=== PATIENT | male | born 1955 | race African-American/Black ===

== ENCOUNTER → 2018-01-27 | Outpatient (CLI) | payer OTHER ==
[2018-01-27 12:28] LABS: BASOPHILS # (AUTO) 0.04 x10^3/uL (0-0.1); BASOPHILS % (AUTO) 0 % (0-1); EOSINOPHILS # (AUTO) 0.28 x10^3/uL (0-0.4); EOSINOPHILS % (AUTO) 3 % (1-7); LYMPHOCYTES # (AUTO) 1.87 x10^3/uL (1-3.4); LYMPHOCYTES % (AUTO) 23 % (22-44); MD NO; MEAN CORPUSCULAR HEMOGLOBIN 29.5 pg (27.5-34.5); MEAN CORPUSCULAR HGB CONC 33.4 g/dL (33.2-36.2); MEAN CORPUSCULAR VOLUME 88.3 fL (81-97); MONOCYTES # (AUTO) 0.87 x10^3/uL (0.2-0.8); MONOCYTES % (AUTO) 11 % (2-9); NEUTROPHILS # (AUTO) 5.22 x10^3/uL (1.8-6.8); NEUTROPHILS % (AUTO) 63 % (42-75); PLATELET COUNT 199 x10^3/uL (130-400); RED CELL DISTRIBUTION WIDTH 14.8 % (9.4-14.8)
[2018-01-27 12:43] LABS: CALCIUM 9.1 mg/dL (8.5-10.1); CHLORIDE 106 mmol/L (98-107)
[2018-01-27 12:46] LABS: ANION GAP 8 mmol/L (5-15)
[2018-01-27 12:56] LABS: ALANINE AMINOTRANSFERASE 35 U/L (12-78); ALKALINE PHOSPHATASE 117 U/L (45-117); CHOLESTEROL, TOTAL 181 mg/dL (140-239); CREATININE 1.07 mg/dL (0.7-1.3); HDL CHOL % 34 % (26-37); HDL CHOLESTEROL (DIRECT) 61 mg/dL (40-60); LDL CHOLESTEROL,CALCULATED 105 mg/dL (54-169); LDL/HDL RATIO 1.7 (0.5-3.0); T4 (THYROXINE) 10.7 mcg/dL (4.5-12.1); TOTAL PROTEIN 7.1 g/dL (6.4-8.2); TRIGLYCERIDES 76 mg/dL (50-200); VLDL CHOLESTEROL 15 mg/dL (0-25)
== END | disposition home or self-care (01) ==
LOC: CFH 07:24
PROVIDERS: ATTEND Nurse Practitioner Family
DX: E11.9 Type 2 diabetes mellitus without complications (principal); E78.5 Hyperlipidemia, unspecified; I10 Essential (primary) hypertension; R07.89 Other chest pain
CPT/HCPCS: 36415; 80053; 80061; 84436; 84443; 84481; 85025

== ENCOUNTER → 2018-02-05 | Outpatient (CLI) | payer OTHER ==
[~2018-02-05] MED LIST: REGADENOSON 0.4 MG/5 ML SYRINGE ONE
== END | disposition home or self-care (01) ==
LOC: CFH 06:41
PROVIDERS: ATTEND Nurse Practitioner Family
DX: I34.0 Nonrheumatic mitral (valve) insufficiency (principal); I11.9 Hypertensive heart disease without heart failure; I48.91 Unspecified atrial fibrillation; E78.5 Hyperlipidemia, unspecified; E11.9 Type 2 diabetes mellitus without complications
CPT/HCPCS: 78452; 93017; 93306; A9502; J2785

== ENCOUNTER 2018-03-02 21:23 | Emergency (ER) | payer OTHER ==
[~2018-03-02] VITALS: Ht 172.7 cm; Wt 91.0 kg
[2018-03-02] MEDS ORDERED: SODIUM CHLORIDE FLUSH 10ML SYR IVF ONE (21:30)
[2018-03-02] MEDS ORDERED: NITROGLYCERIN OINT 2%, 1GM TP ONE ×2 (21:30→21:34)
[2018-03-02] MEDS ORDERED: PLEASE ENTER HEIGHT AND WEIGHT MC SCH (21:30)
[2018-03-02] MEDS ORDERED: ASPIRIN 81 MG TABLET CHEW PO ONE (21:30)
[2018-03-02] MEDS ORDERED: ASPIRIN 81 MG TABLET CHEW ONE (21:34)
[2018-03-02 21:47] LABS: BASOPHILS # (AUTO) 0.03 x10^3/uL (0-0.1); BASOPHILS % (AUTO) 0 % (0-1); EOSINOPHILS # (AUTO) 0.24 x10^3/uL (0-0.4); EOSINOPHILS % (AUTO) 3 % (1-7); LYMPHOCYTES # (AUTO) 2.04 x10^3/uL (1-3.4); LYMPHOCYTES % (AUTO) 25 % (22-44); MD NO; MEAN CORPUSCULAR HEMOGLOBIN 29.8 pg (27.5-34.5); MEAN CORPUSCULAR HGB CONC 33.8 g/dL (33.2-36.2); MEAN CORPUSCULAR VOLUME 88.1 fL (81-97); MEAN PLATELET VOLUME 10.2 fL (7.4-10.4); MONOCYTES # (AUTO) 0.89 x10^3/uL (0.2-0.8); MONOCYTES % (AUTO) 11 % (2-9); NEUTROPHILS # (AUTO) 5.13 x10^3/uL (1.8-6.8); NEUTROPHILS % (AUTO) 62 % (42-75); PLATELET COUNT 222 x10^3/uL (130-400); RED BLOOD COUNT 5.62 x10^6/uL (4.38-5.82); RED CELL DISTRIBUTION WIDTH 14.7 % (9.4-14.8)
[2018-03-02 21:53] LABS: INTERNATIONAL NORMALIZED RATIO 0.99 (0.93-1.1); PROTHROMBIN TIME 10.3 Seconds (9.6-11.5)
[2018-03-02 21:54] LABS: ANION GAP 11 mmol/L (5-15); CALCIUM 9.3 mg/dL (8.5-10.1); CHLORIDE 107 mmol/L (98-107); CREATININE 1.18 mg/dL (0.7-1.3)
[2018-03-02 21:55] LABS: ALANINE AMINOTRANSFERASE 34 U/L (12-78); ALBUMIN 4.2 g/dL (3.4-5.0)
[2018-03-02 21:59] LABS: ALKALINE PHOSPHATASE 142 U/L (45-117); T4 (THYROXINE) 11.2 mcg/dL (4.5-12.1); TOTAL PROTEIN 7.8 g/dL (6.4-8.2); TROPONIN I < 0.015 ng/mL (0.000-0.045)
[2018-03-02] MEDS ORDERED: METF500T27 PO (22:08)
[2018-03-02] MEDS ORDERED: ATOR40TA PO (22:08)
[2018-03-02] MEDS ORDERED: LABE300T2 PO (22:08)
[2018-03-02] MEDS ORDERED: APIX5TAB PO (22:08)
[2018-03-02] MEDS ORDERED: OMEP-110 PO (22:08)
[2018-03-02] MEDS ORDERED: ZOLP10TA PO (22:08)
[2018-03-02] MEDS ORDERED: LISI40TA PO (22:08)
[2018-03-02 23:11] VITALS: BP 159/80
== END 2018-03-02 23:13 | disposition home or self-care (01) ==
LOC: ED 23:00
DX: I48.0 Paroxysmal atrial fibrillation (principal); R07.89 Other chest pain; R06.00 Dyspnea, unspecified; I10 Essential (primary) hypertension
CPT/HCPCS: 36415; 71045; 80053; 83735; 83880; 84436; 84443; 84484; 85025; 85610; 85730; 93005; 99285

== ENCOUNTER 2019-04-01 10:11 | Emergency (ER) | payer MEDICARE, OTHER ==
[~2019-04-01] VITALS: Ht 172.7 cm; Wt 91.0 kg
[~2019-04-01 10:11] MED LIST changes: +APIX5TAB PO; +ATOR40TA PO; +LABE300T2 PO; +LISI40TA PO; +METF500T27 PO; +OMEP-110 PO; -REGADENOSON 0.4 MG/5 ML SYRINGE ONE; +ZOLP10TA PO
[2019-04-01] MEDS ORDERED: HYDROCHLOROTHIAZIDE (10:28)
[2019-04-01] MEDS ORDERED: METF500T17 PO (10:28)
[2019-04-01] MEDS ORDERED: HYDR100T25 PO (10:28)
[2019-04-01] MEDS ORDERED: SODIUM CHLORIDE FLUSH 10ML SYR IVF ONE (10:30)
--- NOTE | 2019-04-01 10:32 | NUR ---
pt biba from home after syncopal event after getting out of shower. pt was assisted to ground by family members, but hit left ribs on counter. pain to left ribs. pt also c/o loose stools and epigastric abd pain that he attributes to recent shingles vaccine approx 1 week ago. upon ems arrival, ekg showed nsr in 70s. retake ekg showed afib in 120s. upon arrival to hospital, pt is nsr in 60s. piv established en route and 1L ns administered. per ems, orthostatic vs: supine 117/83, sitting 95/60 with minimal increase in hr (<10bpm). pt connected to all monitors. vss. no needs expressed. call light within reach. Dr. Chapman to bs for assessment.
--- NOTE | 2019-04-01 10:43 | NUR ---
repeat ekg showed afib. Dr. Chapman notified and to bs. pt in nsr upon arrival, then converted to afib 110s. pt instructed to bare down with hr decrease to 38, nsr. within 10 seconds, hr returned to 60s, nsr. Dr. Chapman aware.
[2019-04-01 10:52] LABS: BASOPHILS # (AUTO) 0.02 x10^3/uL (0-0.1); BASOPHILS % (AUTO) 0 % (0-1); EOSINOPHILS # (AUTO) 0.24 x10^3/uL (0-0.4); EOSINOPHILS % (AUTO) 3 % (1-7); LYMPHOCYTES # (AUTO) 1.32 x10^3/uL (1-3.4); LYMPHOCYTES % (AUTO) 17 % (22-44); MD NO; MEAN CORPUSCULAR HEMOGLOBIN 30.3 pg (27.5-34.5); MEAN CORPUSCULAR HGB CONC 33.1 g/dL (33.2-36.2); MEAN CORPUSCULAR VOLUME 91.5 fL (81-97); MEAN PLATELET VOLUME 9.9 fL (7.4-10.4); MONOCYTES # (AUTO) 0.48 x10^3/uL (0.2-0.8); MONOCYTES % (AUTO) 6 % (2-9); NEUTROPHILS # (AUTO) 5.89 x10^3/uL (1.8-6.8); NEUTROPHILS % (AUTO) 74 % (42-75); PLATELET COUNT 202 x10^3/uL (130-400); RED BLOOD COUNT 5.12 x10^6/uL (4.38-5.82); RED CELL DISTRIBUTION WIDTH 14.3 % (9.4-14.8)
[2019-04-01 10:56] LABS: INTERNATIONAL NORMALIZED RATIO 1.12 (0.93-1.1); PROTHROMBIN TIME 11.7 Seconds (9.6-11.5)
[2019-04-01 10:59] LABS: ALANINE AMINOTRANSFERASE 34 U/L (12-78); ALBUMIN 3.2 g/dL (3.4-5.0); ANION GAP 9 mmol/L (5-15); CALCIUM 8.2 mg/dL (8.5-10.1); CHLORIDE 105 mmol/L (98-107); CREATININE 1.26 mg/dL (0.7-1.3)
[2019-04-01 11:03] LABS: ALKALINE PHOSPHATASE 119 U/L (45-117); BILIRUBIN,TOTAL 1.3 mg/dL (0.2-1.0); TROPONIN I < 0.015 ng/mL (0.000-0.045)
--- NOTE | 2019-04-01 11:12 | NUR ---
pt resting in room. vss. pt reports he has not felt any further episodes of afib. no needs expressed. call light within reach. family at bs. awaiting results.
--- NOTE | 2019-04-01 11:45 | NUR ---
new orders for ct received at this time.
[2019-04-01] MEDS ORDERED: OMNIPAQUE 350 MG/ML, 100ML BOTTLE ONE (12:12)
--- NOTE | 2019-04-01 12:15 | NUR ---
pt back from ct. vss. remains in nsr. no needs expressed. call light within reach. awaiting ct results.
--- NOTE | 2019-04-01 12:56 | NUR ---
dr cool spoke with dr lyon
--- NOTE | 2019-04-01 13:07 | NUR ---
RECEIVED REPORT FROM RONALDO CA. PT RESTING ON [facility]. NADN. [place].
[2019-04-01 13:08] VITALS: BP 105/57
== END 2019-04-01 13:53 | disposition home or self-care (01) ==
LOC: ED 11:25
DX: I48.0 Paroxysmal atrial fibrillation (principal); R55 Syncope and collapse; R10.9 Unspecified abdominal pain; R42 Dizziness and giddiness; I10 Essential (primary) hypertension
CPT/HCPCS: 36415; 71045; 74177; 80053; 83880; 84484; 85025; 85610; 85730; 93005; 99284; Q9967

== ENCOUNTER 2019-04-17 11:03 | Outpatient (CLI) | payer OTHER, MEDICARE ==
[~2019-04-17 11:03] MED LIST changes: +HYDR100T25 PO; +HYDROCHLOROTHIAZIDE; +METF500T17 PO
== END 2019-04-17 23:59 | disposition home or self-care (01) ==
LOC: CVU 11:03
PROVIDERS: ATTEND Internal Medicine Cardiovascular Disease
DX: I34.0 Nonrheumatic mitral (valve) insufficiency (principal); I11.9 Hypertensive heart disease without heart failure; R55 Syncope and collapse; I48.91 Unspecified atrial fibrillation; E11.9 Type 2 diabetes mellitus without complications; E78.5 Hyperlipidemia, unspecified; Z79.899 Other long term (current) drug therapy
CPT/HCPCS: 0399T; 93306

== ENCOUNTER 2019-08-18 08:27 | Outpatient (CLI) | payer OTHER, MEDICARE ==
[2019-08-18] MEDS ORDERED: OMNIPAQUE 350 MG/ML, 100ML BOTTLE ONE (14:37)
[2019-08-19] MEDS ORDERED: HYDR25TA6 PO (06:48)
[2019-08-19] MEDS ORDERED: ISOS10TA2 PO (06:48)
[2019-08-19] MEDS ORDERED: AMLO-150 PO (06:49)
== END 2019-08-18 23:59 | disposition home or self-care (01) ==
LOC: CFH 08:27
PROVIDERS: ATTEND Internal Medicine Cardiovascular Disease
DX: Z01.818 Encounter for other preprocedural examination (principal); I48.0 Paroxysmal atrial fibrillation; E78.5 Hyperlipidemia, unspecified; I10 Essential (primary) hypertension; R55 Syncope and collapse
CPT/HCPCS: 71046; 75572; 82565; Q9967

== ENCOUNTER 2019-08-19 06:06 | Inpatient (IN) | payer OTHER, MEDICARE ==
[~2019-08-19] VITALS: Ht 172.7 cm; Wt 84.6 kg
[2019-08-19] MEDS ORDERED: SODIUM CHLORIDE 0.9% 1,000 ML IV SCH ×2 (06:35→07:00)
[2019-08-19 06:41] VITALS: BP 127/52
[2019-08-19] MEDS ORDERED: HYDR25TA6 PO (06:48)
[2019-08-19] MEDS ORDERED: ISOS10TA2 PO (06:48)
[2019-08-19] MEDS ORDERED: AMLO-150 PO (06:49)
[2019-08-19 07:16] LABS: ANION GAP 8 mmol/L (5-15); CALCIUM 8.8 mg/dL (8.5-10.1); CHLORIDE 109 mmol/L (98-107); CREATININE 1.13 mg/dL (0.7-1.3); MEAN CORPUSCULAR HEMOGLOBIN 30.1 pg (27.5-34.5); MEAN CORPUSCULAR HGB CONC 33.3 g/dL (33.2-36.2); MEAN CORPUSCULAR VOLUME 90.4 fL (81-97); MEAN PLATELET VOLUME 9.7 fL (7.4-10.4); PLATELET COUNT 193 x10^3/uL (130-400); RED BLOOD COUNT 4.75 x10^6/uL (4.38-5.82); RED CELL DISTRIBUTION WIDTH 14.6 % (9.4-14.8)
[2019-08-19] MEDS ORDERED: MIDAZOLAM 1 MG/ML, 2ML ONE (07:54)
[2019-08-19] MEDS ORDERED: FENTANYL PF 250 MCG/5ML ONE (07:54)
[2019-08-19] MEDS ORDERED: VASOPRESSIN 20 UNIT/ML, 1ML ONE (08:01)
[2019-08-19] MEDS ORDERED: DEXAMETHASONE 4 MG/ML, 1ML ONE (08:01)
[2019-08-19] MEDS ORDERED: SUCCINYLCHOLINE 20 MG/ML, 10ML ONE (08:01)
[2019-08-19] MEDS ORDERED: ROCURONIUM 10 MG/ML,10ML ONE (08:01)
[2019-08-19] MEDS ORDERED: ONDANSETRON 2MG/ML, 2ML ONE (08:01)
[2019-08-19 08:27] LABS: BASOPHILS % (AUTO) 0 % (0-1); EOSINOPHILS # (AUTO) 0.16 x10^3/uL (0-0.4); EOSINOPHILS % (AUTO) 2 % (1-7); LYMPHOCYTES % (AUTO) 15 % (22-44); MD SCAN; MONOCYTES # (AUTO) 0.62 x10^3/uL (0.2-0.8); MONOCYTES % (AUTO) 8 % (2-9); NEUTROPHILS # (AUTO) 5.62 x10^3/uL (1.8-6.8); NEUTROPHILS % (AUTO) 75 % (42-75)
[2019-08-19] MEDS ORDERED: PROPOFOL 10 MG/ML, 20ML ONE ×2 (09:10)
[2019-08-19] MEDS ORDERED: HEPARIN 1,000 UNITS/ML, 10ML ONE ×2 (09:10→09:13)
[2019-08-19] MEDS ORDERED: SUGAMMADEX 200 MG/2 ML IVPush ONE (10:54)
[2019-08-19] MEDS ORDERED: APIXABAN 5 MG TABLET ONE (11:01)
[2019-08-19] MEDS ORDERED: ONDANSETRON ODT 8 MG PO PRN (11:30)
[2019-08-19] MEDS ORDERED: MIDAZOLAM 1 MG/ML, 2ML IV PRN (11:30)
[2019-08-19] MEDS ORDERED: LABETALOL 5MG/ML, 20ML IV PRN (11:30)
[2019-08-19] MEDS ORDERED: EPHEDRINE 50 MG/ML, 1ML IVPush PRN (11:30)
[2019-08-19] MEDS ORDERED: HALOPERIDOL 5 MG/ML IV PRN (11:30)
[2019-08-19] MEDS ORDERED: PROMETHAZINE 12.5 MG SUPP PR PRN (11:30)
[2019-08-19] MEDS ORDERED: PROMETHAZINE 25 MG/ML, 1ML IV PRN (11:30)
[2019-08-19] MEDS ORDERED: ALBUTEROL SULFATE 2.5 MG/3 ML NPPB PRN (11:30)
[2019-08-19] MEDS ORDERED: HYDROmorphone 2 MG/ML, 1ML IVPush PRN (11:30)
[2019-08-19] MEDS ORDERED: ONDANSETRON 2MG/ML, 2ML IV PRN (11:30)
[2019-08-19] MEDS ORDERED: ACETAMINOPHEN 325 MG TABLET PO PRN (11:30)
[2019-08-19] MEDS ORDERED: DIAZEPAM 5 MG/ML, 2ML IVPush PRN (11:30)
[2019-08-19] MEDS ORDERED: MEPERIDINE/PF 25MG/ML,1ML IVPush PRN (11:30)
[2019-08-19] MEDS ORDERED: hydrALAzine 20 MG/ML, 1ML IV PRN (11:30)
[2019-08-19] MEDS ORDERED: OXYcodone 5 MG/5 ML ORAL.SOL UDC PO PRN (11:30)
[2019-08-19] MEDS ORDERED: ACETAMINOPHEN 650 MG/20.3 ML UDC ONE (11:41)
[2019-08-19] MEDS ORDERED: FENTANYL PF 100 MCG/2ML ONE (11:41)
[2019-08-19] MEDS ORDERED: OXYcodone 5 MG/5 ML ORAL.SOL UDC ONE (11:41)
[2019-08-19] MEDS: FENTANYL PF 100 MCG/2ML IV PRN ×3 (11:46→12:05)
[2019-08-19] MEDS ORDERED: APIXABAN 5 MG TABLET PO ONE (11:54)
[2019-08-19] MEDS: ISOSORBIDE DINITRATE 20 MG TABLET PO SCH ×2 (17:06→20:15)
[2019-08-19] MEDS: SOTALOL 80MG TABLET PO SCH (18:00)
[2019-08-19 19:57] VITALS: BP 127/57
[2019-08-19] MEDS: metFORMIN 500 MG TABLET PO SCH (20:29)
[2019-08-19] MEDS: LISINOPRIL 40 MG TABLET PO SCH (20:29)
[2019-08-19] MEDS ORDERED: LABETALOL 300 MG TABLET PO SCH (21:00)
[2019-08-19] MEDS ORDERED: APIXABAN 5 MG TABLET PO SCH (21:00)
[2019-08-19] MEDS: LABETALOL 100 MG TABLET PO SCH (22:42)
[2019-08-19] MEDS: APIXABAN 5 MG TABLET PO SCH (23:09)
[2019-08-20 01:30] VITALS: BP 147/73
[2019-08-20 06:47] VITALS: BP 170/74
[2019-08-20] MEDS: SOTALOL 80MG TABLET PO SCH ×2 (06:52→17:52)
[2019-08-20] MEDS: OMEPRAZOLE 20 MG CAPSULE.DR PO SCH (06:52)
[2019-08-20] MEDS: ISOSORBIDE DINITRATE 20 MG TABLET PO SCH ×3 (08:45→21:55)
[2019-08-20] MEDS: metFORMIN 500 MG TABLET PO SCH ×2 (08:45→21:55)
[2019-08-20] MEDS: APIXABAN 5 MG TABLET PO SCH ×2 (08:45→21:54)
[2019-08-20] MEDS: LISINOPRIL 40 MG TABLET PO SCH (08:46)
[2019-08-20] MEDS: AMLODIPINE 5 MG TABLET PO SCH (08:46)
[2019-08-20] MEDS ORDERED: HYDROCHLOROTHIAZIDE 25 MG TABLET PO SCH (09:00)
[2019-08-20] MEDS: LABETALOL 100 MG TABLET PO SCH (10:56)
[2019-08-20 10:57] VITALS: BP 129/62
[2019-08-20 12:08] VITALS: BP 139/67
[2019-08-20] MEDS ORDERED: BISACODYL 5 MG EC TABLET PO PRN (14:30)
[2019-08-20 16:25] VITALS: BP 151/72
[2019-08-20 20:22] VITALS: BP 149/72
[2019-08-20] MEDS ORDERED: LOSARTAN 25MG TABLET PO SCH (21:00)
[2019-08-20] MEDS: ZOLPIDEM 10MG TABLET PO PRN (21:55)
[2019-08-21] VITALS (8 sets, daily range): BP systolic 143–188; BP diastolic 67–79
[2019-08-21] MEDS: hydrALAzine 20 MG/ML, 1ML IV PRN ×2 (04:04→06:12)
[2019-08-21] MEDS: SOTALOL 80MG TABLET PO SCH ×2 (05:10→17:45)
[2019-08-21] MEDS: OMEPRAZOLE 20 MG CAPSULE.DR PO SCH (06:13)
[2019-08-21] MEDS: APIXABAN 5 MG TABLET PO SCH ×2 (08:16→21:29)
[2019-08-21] MEDS: LABETALOL 100 MG TABLET PO SCH ×2 (08:17→21:30)
[2019-08-21] MEDS: metFORMIN 500 MG TABLET PO SCH ×2 (08:17→21:31)
[2019-08-21] MEDS: ISOSORBIDE DINITRATE 20 MG TABLET PO SCH ×3 (08:17→21:29)
[2019-08-21] MEDS: LOSARTAN 25MG TABLET PO SCH ×2 (08:18→21:30)
[2019-08-21] MEDS: AMLODIPINE 5 MG TABLET PO SCH ×3 (08:18→21:30)
[2019-08-21] MEDS ORDERED: ACETAMINOPHEN 325 MG TABLET PO PRN (09:00)
[2019-08-21] MEDS: DOXAZOSIN 1MG TABLET PO SCH ×2 (11:52→21:41)
[2019-08-21] MEDS: ZOLPIDEM 10MG TABLET PO PRN (21:31)
[2019-08-22 02:28] VITALS: BP 148/65
[2019-08-22] MEDS: OMEPRAZOLE 20 MG CAPSULE.DR PO SCH (06:06)
[2019-08-22] MEDS: SOTALOL 80MG TABLET PO SCH (06:12)
[2019-08-22 06:46] VITALS: BP 160/80
[2019-08-22] MEDS: DOXAZOSIN 1MG TABLET PO SCH (07:38)
[2019-08-22] MEDS: ISOSORBIDE DINITRATE 20 MG TABLET PO SCH (07:38)
[2019-08-22] MEDS: metFORMIN 500 MG TABLET PO SCH (07:38)
[2019-08-22] MEDS ORDERED: AMLODIPINE 10 MG TAB PO SCH (08:00)
[2019-08-22] MEDS: APIXABAN 5 MG TABLET PO SCH (08:39)
[2019-08-22] MEDS: LABETALOL 100 MG TABLET PO SCH (08:39)
[2019-08-22] MEDS: LOSARTAN 100 MG TAB PO SCH (08:39)
[2019-08-22] MEDS ORDERED: DOXA1TAB PO (08:56)
[2019-08-22] MEDS ORDERED: AMLO-150 PO (08:56)
[2019-08-22] MEDS ORDERED: LABE100T6 PO (08:56)
[2019-08-22] MEDS ORDERED: SOTA80TA18 PO (08:56)
[2019-08-22] MEDS ORDERED: LOSA100T2 PO (08:56)
== END 2019-08-22 11:11 | disposition home or self-care (01) | DRG 273 ==
LOC: CACL 06:06 → ORIP 10:56 → 5SO 12:38 → OBSVTOIN 08-20 09:45
PROVIDERS: ADMIT Internal Medicine Cardiovascular Disease; ATTEND Internal Medicine Cardiovascular Disease
PROC: B246ZZ4 Ultrasonography of Right and Left Heart, Transesophageal (ICD-10-PCS; 2019-08-17)
PROC: 02K83ZZ Map Conduction Mechanism, Percutaneous Approach (ICD-10-PCS; 2019-08-19)
PROC: 4A023FZ Measurement of Cardiac Rhythm, Percutaneous Approach (ICD-10-PCS; 2019-08-19)
PROC: 4A0234Z Measurement of Cardiac Electrical Activity, Percutaneous Approach (ICD-10-PCS; 2019-08-19)
PROC: 02583ZZ Destruction of Conduction Mechanism, Percutaneous Approach (ICD-10-PCS; principal; 2019-08-19 08:00)
DX: I48.0 Paroxysmal atrial fibrillation (principal); I50.31 Acute diastolic (congestive) heart failure; D68.69 Other thrombophilia; I31.3 Pericardial effusion (noninflammatory); I97.190 Other postprocedural cardiac functional disturbances following cardiac surgery; E11.9 Type 2 diabetes mellitus without complications; I11.9 Hypertensive heart disease without heart failure; I48.3 Typical atrial flutter; Z87.891 Personal history of nicotine dependence; Y83.8 Other surgical procedures as the cause of abnormal reaction of the patient, or of later complication, without mention of misadventure at the time of the procedure; Y92.098 Other place in other non-institutional residence as the place of occurrence of the external cause; Z79.84 Long term (current) use of oral hypoglycemic drugs
CPT/HCPCS: 36415; 80048; 82962; 85025; 85347; 93005; 93308; 93312; 93321; 93325; 93613; 93656; 93662; C1732; C1766; C1893; C1894; G0378; J1100; J1644; J2250; J2405; J2704; J3010; C1730; J0330; J0360

== ENCOUNTER → 2020-05-05 | Outpatient (CLI) | payer OTHER ==
[~2020-05-05] MED LIST changes: +AMLO-150 PO; +DOXA1TAB PO; +HYDR25TA6 PO; +ISOS10TA2 PO; +LABE100T6 PO; +LOSA100T2 PO; +SOTA80TA18 PO
== END | disposition home or self-care (01) ==
LOC: CVU 12:31
PROVIDERS: ATTEND Registered Nurse
DX: I11.9 Hypertensive heart disease without heart failure (principal); I48.91 Unspecified atrial fibrillation
CPT/HCPCS: 93306; 93356